=== PATIENT | male | born 1975 | race Caucasian/White ===

== ENCOUNTER 2017-04-10 14:07 | Inpatient (IN) | payer OTHER ==
[2017-04-10 18:45] VITALS: BMI 32.2
--- NOTE | 2017-04-10 20:11 | HP ---
CIWA Score - CIWA Score Nausea/Vomitin (nausea, no vomiting) Muscle Tremors: 4-Moderate,w/Arms Extend Anxiety: 4-Mod. Anxious/Guarded Agitation: 0-Normal Activity Paroxysmal Sweats: 2 Orientation: 1-Uncertain about Date Tacttile Disturbances: 0-None Auditory Disturbances: 0-None Visual Disturbances: 0-None Headache: 3-Moderate CIWA-Ar Total Score: 17 Admission [facility] - HPI Chief Complaint: Alcohol withdrawal symptoms Allergies/Adverse Reactions: Allergies Allergy/AdvReac Type Severity Reaction Status Date / Time No Known Allergies Allergy Verified 04/10/17 18:30 History of Present Illness: 41 years old male with a long history of alcohol dependence is seeking admission to detox. Patient has been in previous detox and reports insignificant period of sobriety. He has past medical history of anxiety, insomnia and depression. Patient states that he attempted suicide in October 2016 but denies suicidal ideation at this time. This is his first admission to [facility] detox. Exam Limitations: No Limitations - Ebola screening Have you traveled outside of the country in the last 21 days: No Have you had contact with anyone from an Ebola affected area: No Have you been sick,other than usual withdrawal symptoms: No Do you have a fever: No - Review of Systems Constitutional: Loss of Appetite, Malaise, Night Sweats, Changes in sleep EENT: reports: Nose Congestion, Sinus Pressure Respiratory: reports: Cough Cardiac: reports: No Symptoms Reported GI: reports: Diarrhea (x 2), Nausea, Poor Appetite, Poor Fluid Intake, Abdominal cramping : reports: No Symptoms Reported Musculoskeletal: reports: Back Pain, Muscle Pain, Muscle Weakness, Joint Stiffness Integumentary: reports: Dryness, Flushing Neuro: reports: Headache, Tingling, Tremors, Weakness Endocrine: reports: Flushing Hematology: reports: No Symptoms Reported Psychiatric: reports: Mood/Affect Appropiate, Agitated, Anxious, Depressed Other Systems: Reviewed and Negative Patient History - Patient Medical History Hx Anemia: No Hx Asthma: No Hx Chronic Obstructive Pulmonary Disease (COPD): No Hx Cardiac Disorders: No Hx Congestive Heart Failure: No Hx Hypertension: No Hx Hypercholesterolemia: No HX Cerebrovascular Accident: No Hx Seizures: No Hx Diabetes: No Hx Gastrointestinal Disorders: No Hx Liver Disease: No Hx Genitourinary Disorders: No Hx Sexually Transmitted Disorders: No Hx Renal Disease (ESRD): No Hx Thyroid Disease: No Hx Human Immunodeficiency Virus (HIV): No (Negative 2015) Hx Hepatitis C: No Hx Depression: Yes Hx Suicide Attempt: Yes (Attempt in October 2016. Denies suicidal ideation at this time) Hx Bipolar Disorder: No Hx Schizophrenia: No - Patient Surgical History Past Surgical History: No Hx Neurologic Surgery: No Hx Cataract Extraction: No Hx Cardiac Surgery: No Hx Lung Surgery: No Hx Abdominal Surgery: No Hx Appendectomy: No Hx Cholecystectomy: No Hx Genitourinary Surgery: No Hx Section: No Hx Orthopedic Surgery: No Anesthesia Reaction: No - PPD History Previous Implant?: Yes Documented Results: Negative w/o proof Implanted On Prior [facility] Admission?: No PPD to be Administered?: Yes - Reproductive History Patient is a Female of Child Bearing Age (11 -55 yrs old): No (MALE) - Smoking Cessation Smoking history: Current every day smoker Have you smoked in the past 12 months: Yes Aproximately how many cigarettes per day: 6 Hx Chewing Tobacco Use: No Initiated information on smoking cessation: Yes 'Breaking Loose' booklet given: 04/10/17 - Substance & Tx. History Hx Alcohol Use: Yes Hx Substance Use: Yes Substance Use Type: Marijuana Hx Substance Use Treatment: Yes ([facility] - Substances Abused Alcohol Route: Oral Frequency: Daily Amount used: LIQUOR- 1 GALLON, BEER 1SIX PACK Age of first use: 22 Date of Last Use: 04/10/17 Family Disease History - Family Disease History Family Disease History: Diabetes: Father, Other: Mother (BIPOLAR ) Admission Physical Exam [facility] - Vital Signs Vital Signs: Vital Signs - 24 hr 04/10/17 18:43 Temperature 97.8 F Pulse Rate 88 Respiratory 20 Rate Blood Pressure 161/89 - Physical General Appearance: Yes: Moderate Distress, Tremorous, Irritable, Sweating, Anxious HEENTM: Yes: EOMI, Normal ENT Inspection, Normal Voice, LEONARD Respiratory: Yes: Lungs Clear, Normal Breath Sounds, No Respiratory Distress Neck: Yes: Supple Breast: Yes: Breast Exam Deferred Cardiology: Yes: Regular Rhythm, Regular Rate, S1, S2 Abdominal: Yes: Normal Bowel Sounds, Soft, Protuberent Genitourinary: Yes: Within Normal Limits Back: Yes: Normal Inspection Musculoskeletal: Yes: Back pain, Joint Stiffness, Muscle weakness Extremities: Yes: Tremors Neurological: Yes: Alert, Normal Mood/Affect, Normal Response Integumentary: Yes: Dry Lymphatic: Yes: Within Normal Limits - Diagnostic (1) Alcohol dependence with uncomplicated withdrawal Current Visit: Yes Status: Chronic (2) Cannabis dependence, uncomplicated Current Visit: Yes Status: Chronic (3) Depression Current Visit: Yes Status: Chronic (4) Anxiety Current Visit: Yes Status: Chronic (5) Nicotine dependence Current Visit: Yes Status: Chronic Cleared for Admission [facility] - Detox or Rehab [facility] Level of Care: Medically Managed Detox Regimen/Protocol: Librium [facility] Breath Alcohol Content Breath Alcohol Content: 0 Urine Drug Screen - Results Drug Screen Negative: No Urine Drug Screen Results: THC-Marijuana
[2017-04-10] MEDS ORDERED: ACETAMINOPHEN 325 MG TABLET (FP) PO PRN (20:27)
[2017-04-10] MEDS ORDERED: NICOTINE POLACRILEX 2 MG GUM BC PRN (20:27)
[2017-04-10] MEDS ORDERED: MAG HYDROX/AL HYDROX/SIMETH 30 ML UNIT-DOSE CUP PO PRN (20:27)
[2017-04-10] MEDS ORDERED: chlordiazePOXIDE HCL 25 MG CAPSULE PO PRN (20:27)
[2017-04-10] MEDS ORDERED: IBUPROFEN 400 MG TABLET (FP) PO PRN (20:27)
[2017-04-10] MEDS ORDERED: MENTHOL/PHENOL 1 EACH UD MM PRN (20:27)
[2017-04-10] MEDS ORDERED: MAGNESIUM HYDROX 2400MG/30ML ORAL SUSPENSION 30 ML CUP PO PRN (20:27)
[2017-04-10] MEDS ORDERED: MAGNESIUM CITRATE 300 ML BOTTLE PO PRN (20:27)
[2017-04-10] MEDS ORDERED: LOPERAMIDE HCL 2 MG CAPSULE PO PRN (20:27)
[2017-04-10] MEDS ORDERED: guaiFENesin/D-METHORPHAN HB 10 ML UNIT-DOSE CUPS PO PRN (20:27)
[2017-04-10] MEDS ORDERED: P-EPHED 60MG/TRIPROLIDI 2.5MG TABLET PO PRN (20:27)
[2017-04-10] MEDS: chlordiazePOXIDE HCL 25 MG CAPSULE PO SCH (22:17)
[2017-04-10] MEDS: THIAMINE HCL 100 MG TABLET (FP) PO SCH (22:18)
[2017-04-10 23:18] LABS: URINE APPEARANCE CLEAR; URINE BILIRUBIN NEGATIVE (NEGATIVE); URINE BLOOD 1+ (NEGATIVE); URINE COLOR STRAW; URINE GLUCOSE (UA) NEGATIVE (NEGATIVE); URINE KETONE NEGATIVE (NEGATIVE); URINE LEUK ESTERASE NEGATIVE (NEGATIVE); URINE NITRITE NEGATIVE (NEGATIVE); URINE PROTEIN NEGATIVE (NEGATIVE); URINE UROBILINOGEN NEGATIVE mg/dL (0.2-1.0)
[2017-04-11] MEDS: chlordiazePOXIDE HCL 25 MG CAPSULE PO SCH ×4 (05:50→22:15)
[2017-04-11 10:27] LABS: HEMATOCRIT 44.8 % (35.4-49); HEMOGLOBIN 14.6 GM/dL (11.7-16.9); MCH 28.9 pg (25.7-33.7); MCHC 32.5 g/dl (32.0-35.9); MEAN CELL VOLUME 88.9 fl (80-96); MEAN PLT VOLUME 8.8 fl (7.5-11.1); PLATELET COUNT 259 K/MM3 (134-434); RBC 5.04 M/mm3 (4.00-5.60); RDW 14.1 % (11.9-15.9); WHITE BLOOD COUNT 8.3 K/mm3 (4.0-10.0)
[2017-04-11 10:33] LABS: ALBUMIN 4.2 g/dl (3.4-5.0); ALK PHOS 70 U/L (45-117); ANION GAP 8 (8-16); BILIRUBIN,TOTAL 0.4 mg/dL (0.2-1.0); BLOOD UREA NITROGEN 9 mg/dL (7-18); CALCIUM 9.3 mg/dL (8.5-10.1); CHLORIDE 104 mmol/L (98-107); CO2 29 mmol/L (21-32); CREATININE 0.9 mg/dL (0.7-1.3); GLUCOSE,RANDOM 95 mg/dL (74-106); POTASSIUM 4.1 mmol/L (3.5-5.1); SGOT/AST 18 U/L (15-37); SGPT/ALT 19 U/L (12-78); SODIUM 141 mmol/L (136-145); TOT PROT 7.8 g/dl (6.4-8.2)
--- NOTE | 2017-04-11 10:45 | EKG ---
Test Reason : Blood Pressure : / mmHG Vent. Rate : 081 BPM Atrial Rate : 081 BPM P-R Int : 122 ms QRS Dur : 084 ms QT Int : 356 ms P-R-T Axes : 068 051 045 degrees QTc Int : 413 ms NORMAL SINUS RHYTHM LOW VOLTAGE QRS BORDERLINE ECG NO PREVIOUS ECGS AVAILABLE Confirmed by RODRI BLANCO MD ([id number]) on 04/11/2017 10:45:23 AM Referred By: Confirmed By:RODRI BLANCO MD
[2017-04-11] MEDS: PRENATAL VITAMINS W/ FOLIC ACID TABLET (FP) PO SCH (11:05)
[2017-04-11] MEDS: NICOTINE 14 MG/24 HOURS TOPICAL PATCH TD SCH (11:09)
--- NOTE | 2017-04-11 12:05 | PN ---
S CIWA - CIWA Score Nausea/Vomitin Muscle Tremors: 2 Anxiety: 2 Agitation: 2 Paroxysmal Sweats: 3 Orientation: 0-Oriented Tacttile Disturbances: 1-Very Mild Itch/Numbness Auditory Disturbances: 0-None Visual Disturbances: 0-None Headache: 0-None Present CIWA-Ar Total Score: 13 BHS Progress Note (SOAP) Subjective: interrupted sleep, sweats, nausea Objective: 04/11/17 12:05 Vital Signs Temperature 97.5 F L 04/11/17 05:00 Pulse Rate 61 04/11/17 05:00 Respiratory Rate 18 04/11/17 05:00 Blood Pressure 116/77 04/11/17 05:00 O2 Sat by Pulse Oximetry (%) Laboratory Tests 04/10/17 04/11/17 04/11/17 20:32 07:00 07:00 WBC 8.3 RBC 5.04 Hgb 14.6 Hct 44.8 MCV 88.9 MCH 28.9 MCHC 32.5 RDW 14.1 Plt Count 259 MPV 8.8 Sodium Potassium Chloride Carbon Dioxide Anion Gap BUN Creatinine Creat Clearance w eGFR Random Glucose Calcium Total Bilirubin AST ALT Alkaline Phosphatase Total Protein Albumin Urine Color Straw Urine Appearance Clear Urine pH 5.0 Ur Specific [place] 1.013 Urine Protein Negative Urine Glucose (UA) Negative Urine Ketones Negative Urine Blood 1+ H Urine Nitrite Negative Urine Bilirubin Negative Urine Urobilinogen Negative Ur Leukocyte Esterase Negative Urine WBC (Auto) <1 Urine RBC (Auto) 1 HIV 1&2 Antibody Screen Negative HIV P24 Antigen Negative 04/11/17 07:00 WBC RBC Hgb Hct MCV MCH MCHC RDW Plt Count MPV Sodium 141 Potassium 4.1 Chloride 104 Carbon Dioxide 29 Anion Gap 8 BUN 9 Creatinine 0.9 Creat Clearance w eGFR > 60 Random Glucose 95 Calcium 9.3 Total Bilirubin 0.4 AST 18 ALT 19 Alkaline Phosphatase 70 Total Protein 7.8 Albumin 4.2 Urine Color Urine Appearance Urine pH Ur Specific [place] Urine Protein Urine Glucose (UA) Urine Ketones Urine Blood Urine Nitrite Urine Bilirubin Urine Urobilinogen Ur Leukocyte Esterase Urine WBC (Auto) Urine RBC (Auto) HIV 1&2 Antibody Screen HIV P24 Antigen pt aox3 in nad ambulating Assessment: 04/11/17 12:05 withdrawal sx's Plan: cont. detox increase fluids
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
[2017-04-11] MEDS: traZODone HCL 50 MG TABLET (FP) PO SCH (22:15)
[2017-04-11] MEDS: THIAMINE HCL 100 MG TABLET (FP) PO SCH (22:15)
[2017-04-12] MEDS: chlordiazePOXIDE HCL 25 MG CAPSULE PO SCH ×3 (06:00→17:49)
[2017-04-12] MEDS: PRENATAL VITAMINS W/ FOLIC ACID TABLET (FP) PO SCH (10:46)
[2017-04-12] MEDS: NICOTINE 14 MG/24 HOURS TOPICAL PATCH TD SCH (10:46)
--- NOTE | 2017-04-12 11:23 | PN ---
[facility] CIWA - CIWA Score Nausea/Vomitin-No Nausea/No Vomiting Muscle Tremors: 3 Anxiety: 3 Agitation: 3 Paroxysmal Sweats: 2 Orientation: 0-Oriented Tacttile Disturbances: 0-None Auditory Disturbances: 0-None Visual Disturbances: 0-None Headache: 0-None Present CIWA-Ar Total Score: 11 S Progress Note (SOAP) Subjective: sweats mild shakes interrupted sleep agitation Objective: 04/12/17 11:22 Vital Signs Temperature 97.2 F L 04/12/17 09:22 Pulse Rate 82 04/12/17 09:22 Respiratory Rate 18 04/12/17 09:22 Blood Pressure 123/55 04/12/17 09:22 O2 Sat by Pulse Oximetry (%) Laboratory Tests 04/10/17 04/10/17 04/11/17 07:00 20:32 07:00 WBC RBC Hgb Hct MCV MCH MCHC RDW Plt Count MPV Sodium Potassium Chloride Carbon Dioxide Anion Gap BUN Creatinine Creat Clearance w eGFR Random Glucose Calcium Total Bilirubin AST ALT Alkaline Phosphatase Total Protein Albumin Urine Color Straw Urine Appearance Clear Urine pH 5.0 Ur Specific [place] 1.013 Urine Protein Negative Urine Glucose (UA) Negative Urine Ketones Negative Urine Blood 1+ H Urine Nitrite Negative Urine Bilirubin Negative Urine Urobilinogen Negative Ur Leukocyte Esterase Negative Urine WBC (Auto) <1 Urine RBC (Auto) 1 RPR Titer Hepatitis C Antibody <0.1 HIV 1&2 Antibody Screen Negative HIV P24 Antigen Negative 04/11/17 04/11/17 04/11/17 07:00 07:00 07:00 WBC 8.3 RBC 5.04 Hgb 14.6 Hct 44.8 MCV 88.9 MCH 28.9 MCHC 32.5 RDW 14.1 Plt Count 259 MPV 8.8 Sodium 141 Potassium 4.1 Chloride 104 Carbon Dioxide 29 Anion Gap 8 BUN 9 Creatinine 0.9 Creat Clearance w eGFR > 60 Random Glucose 95 Calcium 9.3 Total Bilirubin 0.4 AST 18 ALT 19 Alkaline Phosphatase 70 Total Protein 7.8 Albumin 4.2 Urine Color Urine Appearance Urine pH Ur Specific [place] Urine Protein Urine Glucose (UA) Urine Ketones Urine Blood Urine Nitrite Urine Bilirubin Urine Urobilinogen Ur Leukocyte Esterase Urine WBC (Auto) Urine RBC (Auto) RPR Titer Nonreactive Hepatitis C Antibody HIV 1&2 Antibody Screen HIV P24 Antigen aaox3 ambulating no acute distress Assessment: 04/12/17 11:23 withdrawal sx Plan: continue detox increase fluids
[2017-04-12] MEDS: THIAMINE HCL 100 MG TABLET (FP) PO SCH (22:15)
[2017-04-12] MEDS: traZODone HCL 50 MG TABLET (FP) PO SCH (22:15)
[2017-04-12] MEDS: chlordiazePOXIDE 5 MG CAPSULE PO SCH (22:15)
[2017-04-13] MEDS: chlordiazePOXIDE 5 MG CAPSULE PO SCH ×3 (06:36→17:45)
[2017-04-13] MEDS: PRENATAL VITAMINS W/ FOLIC ACID TABLET (FP) PO SCH (11:04)
[2017-04-13] MEDS: NICOTINE 14 MG/24 HOURS TOPICAL PATCH TD SCH (11:05)
--- NOTE | 2017-04-13 12:27 | PN ---
[facility] Progress Note (SOAP) Subjective: interrupted sleep, sweats Objective: 04/13/17 12:25 Vital Signs Temperature 97.5 F L 04/13/17 10:00 Pulse Rate 88 04/13/17 10:00 Respiratory Rate 18 04/13/17 10:00 Blood Pressure 136/88 04/13/17 10:00 O2 Sat by Pulse Oximetry (%) Laboratory Tests 04/10/17 04/10/17 04/11/17 07:00 20:32 07:00 WBC RBC Hgb Hct MCV MCH MCHC RDW Plt Count MPV Sodium Potassium Chloride Carbon Dioxide Anion Gap BUN Creatinine Creat Clearance w eGFR Random Glucose Calcium Total Bilirubin AST ALT Alkaline Phosphatase Total Protein Albumin Urine Color Straw Urine Appearance Clear Urine pH 5.0 Ur Specific [place] 1.013 Urine Protein Negative Urine Glucose (UA) Negative Urine Ketones Negative Urine Blood 1+ H Urine Nitrite Negative Urine Bilirubin Negative Urine Urobilinogen Negative Ur Leukocyte Esterase Negative Urine WBC (Auto) <1 Urine RBC (Auto) 1 RPR Titer Hepatitis C Antibody <0.1 HIV 1&2 Antibody Screen Negative HIV P24 Antigen Negative 04/11/17 04/11/17 04/11/17 07:00 07:00 07:00 WBC 8.3 RBC 5.04 Hgb 14.6 Hct 44.8 MCV 88.9 MCH 28.9 MCHC 32.5 RDW 14.1 Plt Count 259 MPV 8.8 Sodium 141 Potassium 4.1 Chloride 104 Carbon Dioxide 29 Anion Gap 8 BUN 9 Creatinine 0.9 Creat Clearance w eGFR > 60 Random Glucose 95 Calcium 9.3 Total Bilirubin 0.4 AST 18 ALT 19 Alkaline Phosphatase 70 Total Protein 7.8 Albumin 4.2 Urine Color Urine Appearance Urine pH Ur Specific [place] Urine Protein Urine Glucose (UA) Urine Ketones Urine Blood Urine Nitrite Urine Bilirubin Urine Urobilinogen Ur Leukocyte Esterase Urine WBC (Auto) Urine RBC (Auto) RPR Titer Nonreactive Hepatitis C Antibody HIV 1&2 Antibody Screen HIV P24 Antigen pt aox3 in nad ambulating Assessment: 04/13/17 12:26 withdrawal sx's Plan: cont. detox increase fluids d/c in am
[2017-04-13] MEDS: THIAMINE HCL 100 MG TABLET (FP) PO SCH (22:22)
[2017-04-13] MEDS: traZODone HCL 50 MG TABLET (FP) PO SCH (22:22)
[2017-04-13] MEDS: chlordiazePOXIDE HCL 10 MG CAPSULE PO SCH (22:48)
[2017-04-14] MEDS: chlordiazePOXIDE HCL 10 MG CAPSULE PO SCH ×2 (05:10→10:30)
[2017-04-14 10:22] VITALS: BP 136/75; PULSE 82; TEMP 97.2
[2017-04-14] MEDS: PRENATAL VITAMINS W/ FOLIC ACID TABLET (FP) PO SCH (10:29)
[2017-04-14] MEDS: NICOTINE 14 MG/24 HOURS TOPICAL PATCH TD SCH (10:31)
--- NOTE | 2017-04-14 11:13 | DS ---
[facility] Detox Discharge Summary Admission Date: 04/10/17 Discharge Date: 04/14/17 - History Present History: Alcohol Dependence, Cannabis Dependence - Physical Exam Results Vital Signs: Vital Signs Temperature 97.2 F L 04/14/17 10:21 Pulse Rate 82 04/14/17 10:21 Respiratory Rate 20 04/14/17 10:21 Blood Pressure 136/75 04/14/17 10:21 O2 Sat by Pulse Oximetry (%) Pertinent Admission Physical Exam Findings: withdrawal symptoms Laboratory Last Values WBC 8.3 K/mm3 (4.0-10.0) 04/11/17 07:00 RBC 5.04 M/mm3 (4.00-5.60) 04/11/17 07:00 Hgb 14.6 GM/dL (11.7-16.9) 04/11/17 07:00 Hct 44.8 % (35.4-49) 04/11/17 07:00 MCV 88.9 fl (80-96) 04/11/17 07:00 MCH 28.9 pg (25.7-33.7) 04/11/17 07:00 MCHC 32.5 g/dl (32.0-35.9) 04/11/17 07:00 RDW 14.1 % (11.9-15.9) 04/11/17 07:00 Plt Count 259 K/MM3 (134-434) 04/11/17 07:00 MPV 8.8 fl (7.5-11.1) 04/11/17 07:00 Sodium 141 mmol/L (136-145) 04/11/17 07:00 Potassium 4.1 mmol/L (3.5-5.1) 04/11/17 07:00 Chloride 104 mmol/L (98-107) 04/11/17 07:00 Carbon Dioxide 29 mmol/L (21-32) 04/11/17 07:00 Anion Gap 8 (8-16) 04/11/17 07:00 BUN 9 mg/dL (7-18) 04/11/17 07:00 Creatinine 0.9 mg/dL (0.7-1.3) 04/11/17 07:00 Creat Clearance w eGFR > 60 (>60) 04/11/17 07:00 Random Glucose 95 mg/dL (74-106) 04/11/17 07:00 Calcium 9.3 mg/dL (8.5-10.1) 04/11/17 07:00 Total Bilirubin 0.4 mg/dL (0.2-1.0) 04/11/17 07:00 AST 18 U/L (15-37) 04/11/17 07:00 ALT 19 U/L (12-78) 04/11/17 07:00 Alkaline Phosphatase 70 U/L (45-117) 04/11/17 07:00 Total Protein 7.8 g/dl (6.4-8.2) 04/11/17 07:00 Albumin 4.2 g/dl (3.4-5.0) 04/11/17 07:00 Urine Color Straw 04/10/17 20:32 Urine Appearance Clear 04/10/17 20:32 Urine pH 5.0 (5.0-8.0) 04/10/17 20:32 Ur Specific [place] 1.013 (1.001-1.035) 04/10/17 20:32 Urine Protein Negative (NEGATIVE) 04/10/17 20:32 Urine Glucose (UA) Negative (NEGATIVE) 04/10/17 20:32 Urine Ketones Negative (NEGATIVE) 04/10/17 20:32 Urine Blood 1+ (NEGATIVE) H 04/10/17 20:32 Urine Nitrite Negative (NEGATIVE) 04/10/17 20:32 Urine Bilirubin Negative (NEGATIVE) 04/10/17 20:32 Urine Urobilinogen Negative mg/dL (0.2-1.0) 04/10/17 20:32 Ur Leukocyte Esterase Negative (NEGATIVE) 04/10/17 20:32 Urine WBC (Auto) <1 /hpf (3-5) 04/10/17 20:32 Urine RBC (Auto) 1 /hpf (0-3) 04/10/17 20:32 RPR Titer Nonreactive (NONREACTIVE) 04/11/17 07:00 Hepatitis C Antibody <0.1 s/co ratio (0.0-0.9) 04/10/17 07:00 HIV 1&2 Antibody Screen Negative 04/11/17 07:00 HIV P24 Antigen Negative 04/11/17 07:00 - Treatment Hospital Course: Detox Protocol Followed, Detoxed Safely, Responded well, Discharged Condition Good, Rehab Referral Accepted Patient has Accepted a Rehab Referral to: [facility] - Medication Discharge Medications: Ambulatory Orders NK [No Known Home Medication] 04/10/17 - Diagnosis (1) Insomnia Current Visit: Yes Status: Chronic (2) Alcohol dependence with uncomplicated withdrawal Current Visit: Yes Status: Acute (3) Anxiety Current Visit: Yes Status: Chronic (4) Cannabis dependence, uncomplicated Current Visit: Yes Status: Chronic (5) Depression Current Visit: Yes Status: Chronic (6) MDD (major depressive disorder) Current Visit: Yes Status: Chronic (7) Nicotine dependence Current Visit: Yes Status: Chronic - AMA Did Patient Leave Against Medical Advice: No
== END 2017-04-14 10:35 | disposition home or self-care (01) | DRG 775 ==
LOC: YASAS 14:07 → Y6N 18:39
PROVIDERS: ADMIT Internal Medicine; ATTEND Internal Medicine
PROC: HZ2ZZZZ Detoxification Services for Substance Abuse Treatment (ICD-10-PCS; principal; 2017-04-10)
DX: F10.230 Alcohol dependence with withdrawal, uncomplicated (principal); F12.20 Cannabis dependence, uncomplicated; F17.210 Nicotine dependence, cigarettes, uncomplicated; F41.9 Anxiety disorder, unspecified; F33.9 Major depressive disorder, recurrent, unspecified; G47.00 Insomnia, unspecified; Z91.5 Personal history of self-harm
CPT/HCPCS: 36415; 80053; 81003; 81015; 85027; 86593; 86803; 87389; 93005; 93010